=== PATIENT | female | born 1940 ===

== ENCOUNTER 2017-11-22 05:47 | Day surgery (SDC) | payer OTHER ==
[~2017-11-22 05:47] MED LIST: ASA81 MG PO; COZAAR25 MG PO; GLYBURIDE2.5 MG PO; HUMULIN 70100 UNIT/2 SUBCUTANEO
== END 2017-11-22 11:45 | disposition home or self-care (01) ==
LOC: CIR.AMB 05:47
DX: H72.92 Unspecified perforation of tympanic membrane, left ear (principal); H61.812 Exostosis of left external canal